=== PATIENT | female | born 1960 | race Caucasian/White ===

== ENCOUNTER 2021-08-13 21:21 | Emergency (ER) | payer OTHER, MEDICAID ==
[~2021-08-13] VITALS: Ht 154.9 cm; Wt 72.6 kg
[2021-08-13 21:21] VITALS: BP 139/75
== END 2021-08-14 04:47 | disposition left against medical advice (07) ==
LOC: ER 21:21
DX: N93.8 Other specified abnormal uterine and vaginal bleeding (principal); R94.31 Abnormal electrocardiogram [ECG] [EKG]; Z88.0 Allergy status to penicillin
CPT/HCPCS: 71045; 76856; 93005